=== PATIENT | male | born 1945 | race Caucasian/White ===

== ENCOUNTER → 2018-05-17 | Day surgery (SDC) | payer MEDICARE, OTHER ==
[~2018-05-17] MED LIST: METHYLPREDNISOLONE ACETATE INJ 40 MG/1 ML ML ONE
--- NOTE | 2018-05-17 14:39 | RADIOLOGY REPORT (SQ) ---
EXAM DESCRIPTION: INJECT/ASPIR HIP/SHLDR/KNEE; FLUORO/NEEDLE PLACEMENT COMPLETED DATE/TIME: 05/17/2018 2:24 pm REASON FOR STUDY: M16.12 UNILATERAL PRIMARY OSTEOARTHRITIS, LEFT HIP M16.12 UNILATERAL PRIMARY OSTE OARTHRITIS, LEFT HIP COMPARISON: None. FLUOROSCOPY TIME: 0.16 minutes. 1 images saved to PACS. LIMITATIONS: None. PROCEDURE: SITE OF INJECTION: Left hip. LOCALIZING CONTRAST TYPE AND DOSE: 1 mL Isovue 300. MEDICATION TYPE AND DOSE: 80 mg Depo-Medrol and 5 mL Sensorcaine. Using local anesthesia and sterile technique with fluoroscopic guidance, the needle was advanced into the joint. Iodinated contrast was injected to verify intraarticular placement. This was followed by therapeutic injection of the indicated medications. The needle was removed. There were no immediat e complications. Preprocedure pain level: 4/5. Postprocedure pain level: 1/5. IMPRESSION: THERAPEUTIC INJECTION OF THE LEFT HIP JOINT ABOVE. COMMENT: Patient medication list reviewed: Yes- Quality ID# [id number]:Eligible professional attests to doc umenting in the medical record they obtained, updated, or reviewed the patient's current medications. . Quality ID 145: Final reports for procedures using fluoroscopy that document radiation exposure cynthia tasha, or exposure time and number of fluorographic images (if radiation exposure indices are not avail able) TECHNICAL DOCUMENTATION: JOB ID: [id number] [employer]- All Rights Reserved Reading location - IP/workstation name: [email or web address]
--- NOTE | 2018-05-17 14:39 | RADIOLOGY REPORT (SQ) ---
EXAM DESCRIPTION: INJECT/ASPIR HIP/SHLDR/KNEE; FLUORO/NEEDLE PLACEMENT COMPLETED DATE/TIME: 05/17/2018 2:24 pm REASON FOR STUDY: M16.12 UNILATERAL PRIMARY OSTEOARTHRITIS, LEFT HIP M16.12 UNILATERAL PRIMARY OSTE OARTHRITIS, LEFT HIP COMPARISON: None. FLUOROSCOPY TIME: 0.16 minutes. 1 images saved to PACS. LIMITATIONS: None. PROCEDURE: SITE OF INJECTION: Left hip. LOCALIZING CONTRAST TYPE AND DOSE: 1 mL Isovue 300. MEDICATION TYPE AND DOSE: 80 mg Depo-Medrol and 5 mL Sensorcaine. Using local anesthesia and sterile technique with fluoroscopic guidance, the needle was advanced into the joint. Iodinated contrast was injected to verify intraarticular placement. This was followed by therapeutic injection of the indicated medications. The needle was removed. There were no immediat e complications. Preprocedure pain level: 4/5. Postprocedure pain level: 1/5. IMPRESSION: THERAPEUTIC INJECTION OF THE LEFT HIP JOINT ABOVE. COMMENT: Patient medication list reviewed: Yes- Quality ID# [id number]:Eligible professional attests to doc umenting in the medical record they obtained, updated, or reviewed the patient's current medications. . Quality ID 145: Final reports for procedures using fluoroscopy that document radiation exposure cynthia tasha, or exposure time and number of fluorographic images (if radiation exposure indices are not avail able) TECHNICAL DOCUMENTATION: JOB ID: [id number] [employer]- All Rights Reserved Reading location - IP/workstation name: [email or web address]
== END ==
LOC: RAD 13:51
PROVIDERS: ATTEND Internal Medicine
DX: M16.12 Unilateral primary osteoarthritis, left hip (principal)
CPT/HCPCS: 20610; 77002; J1020

== ENCOUNTER 2019-10-08 06:07 | Emergency (ER) | payer MEDICARE, OTHER ==
[2019-10-08] MEDS ORDERED: TRANEXAMIC ACID INJ/PF 1,000 MG/10 ML SDV IV ONE ×2 (06:51→07:39)
--- NOTE | 2019-10-08 06:59 | ER Document Report ---
ED Oral Problem - General Chief Complaint: Dental Injury Stated Complaint: BLEEDING GUMS Time Seen by Provider: 10/08/19 06:44 Primary Care Provider: DARLING TRIPATHI MD [Primary Care Provider] - Follow up as needed Notes: Patient is a 73-year-old male that comes emergency department for chief complaint of bleeding gums. He states he had a tooth extraction on 08/06/[address] Juliana Wong at [facility]. He states absorbable sutures were placed but these came out over the night. He states that this is been intermittently bleeding all night. He states he spit out some blood but he has not vomited out any blood, he states he does not feel like he bled significantly down to the throat. Patient states that at one point he formed a clot but then when he opened his mouth the clot came out. He states currently it is bleeding very minimally but he is hoping we can place something to help coagulate the area. He is on Eliquis. He denies injury to the area, pain, or any other complaints. He states he is to follow-up with the Dentist tomorrow. TRAVEL OUTSIDE OF THE [place] IN LAST 30 DAYS: No - Related Data Allergies/Adverse Reactions: No Known Drug Allergies Allergy (Verified 12/15/13 08:14) Home Medications: eliquis. metoprolol. cardiazem. low dose asa. crestor. synthroid. gabapentin Past Medical History - General Information source: Patient - Social History Smoking Status: Never Smoker Frequency of alcohol use: None Drug Abuse: None Lives with: Family Family History: Reviewed & Not Pertinent Patient has suicidal ideation: No Patient has homicidal ideation: No - Past Medical History Cardiac Medical History: Reports: Hx Atrial Fibrillation, Hx Coronary Artery Disease - HIGH CHOLESTEROL, Hx Heart Attack - JANUARY 2012 , Hx Hypertension Pulmonary Medical History: Reports: Hx Bronchitis Denies: Hx Asthma, Hx COPD, Hx Pneumonia Neurological Medical History: Denies: Hx Cerebrovascular Accident, Hx Seizures Musculoskeletal Medical History: Denies Hx Arthritis Past Surgical History: Reports: Hx Cholecystectomy, Hx Open Heart Surgery - JANUARY 2012, TRIPLE BYPASS. Denies: Hx Pacemaker - Immunizations Hx Diphtheria, Pertussis, Tetanus Vaccination: No - UNKNOWN Hx Pneumococcal Vaccination: 10/18/07 Review of Systems - Review of Systems Constitutional: No symptoms reported EENT: See HPI Cardiovascular: No symptoms reported Respiratory: No symptoms reported Gastrointestinal: No symptoms reported Genitourinary: No symptoms reported Male Genitourinary: No symptoms reported Musculoskeletal: No symptoms reported Skin: No symptoms reported Hematologic/Lymphatic: No symptoms reported Neurological/Psychological: No symptoms reported Physical Exam - Vital signs Vitals: Temp Pulse Resp BP Pulse Ox 97.1 F 67 16 179/106 H 98 10/08/19 06:13 10/08/19 06:13 10/08/19 06:13 10/08/19 06:13 10/08/19 06:13 - Notes Notes: GENERAL: Alert, interacts well. No acute distress. HEAD: Normocephalic, atraumatic. EYES: Pupils equal, round, and reactive to light. Extraocular movements intact. ENT: Oral mucosa moist, tongue midline. There is small amount of dried blood on the tongue on the left side, there is what appears to be an extracted tooth of #13 or #14, there is very slow oozing from the gumline in this location. There is no heavy bleeding, no blood in the posterior pharynx, no concerning findings otherwise. Oropharynx unremarkable. Airway patent. Nares patent, no nasal septa l hematoma. NECK: Full range of motion. Supple. Trachea midline. LUNGS: Clear to auscultation bilaterally, no wheezes, rales, or rhonchi. No respiratory distress. HEART: Regular rate and rhythm. No murmur ABDOMEN: Soft, non-tender. Non-distended. EXTREMITIES: Moves all 4 extremities spontaneously. No edema, normal radial and dorsalis pedis pulses bilaterally. No cyanosis. BACK: no cervical, thoracic, lumbar midline tenderness. No saddle anesthesia, normal distal neurovascular exam. NEUROLOGICAL: Alert and oriented x3. Normal speech. Cranial nerves II through XII grossly intact. PSYCH: Normal affect, normal mood. SKIN: Warm, dry, normal turgor. No rashes or lesions noted. Course - Re-evaluation Re-evalutation: Patient has losing from the area in question from the recent tooth extraction and removed suture. There is no heavy bleeding. Patient denies that he was bleeding heavily, denies that he was coughing out or spitting up blood. He denies dizziness. He is somewhat hypertensive but he is not tachycardic. He states he just needs to go home and sleep. He is requesting we make the area stop bleeding, he has follow-up with his dentist tomorrow. TXA was used to spray some aerosolized medication on the area and then the medication was applied to gauze and placed over the area. On evaluation bleeding is stopped. After we clean the area we accidentally remove the clot over the area and on reevaluation this was noted to be very slowly oozing. Patient cannot feel the bleeding but can taste a little bit of blood. He is not choking on the blood, vomiting blood, and has no blood in the posterior pharynx. He requests to leave because this is so minimal. He states he will be careful with eating, he states he will see his dentist tomorrow, he states he will come back if he starts having bleeding. Area was sprayed once more and he was discharged with return precautions. - Vital Signs Vital signs: Temp Pulse Resp BP Pulse Ox 97.1 F 67 16 179/106 H 98 10/08/19 06:13 10/08/19 06:13 10/08/19 06:13 10/08/19 06:13 10/08/19 06:13 Discharge - Discharge Clinical Impression: Gingival bleeding Condition: Stable Disposition: HOME, SELF-CARE Additional Instructions: I recommend today drinking with a straw, eating very carefully without extremes of temperature in your food, and applying pressure to the area with provided gauze intermittently if needed. Please follow-up with your dentist tomorrow. Return if you worsen in any way including heavy bleeding, coughing up or vomiting blood, dizziness, or any other concerning or worsening symptoms. Referrals: DARLING TRIPATHI MD [Primary Care Provider] - Follow up as needed
[2019-10-08 07:52] VITALS: BP 154/97
== END 2019-10-08 07:54 | disposition home or self-care (01) ==
LOC: ER 06:07
DX: K06.9 Disorder of gingiva and edentulous alveolar ridge, unspecified (principal); K08.109 Complete loss of teeth, unspecified cause, unspecified class; I48.91 Unspecified atrial fibrillation; I25.10 Atherosclerotic heart disease of native coronary artery without angina pectoris; E78.00 Pure hypercholesterolemia, unspecified; I10 Essential (primary) hypertension; Z79.01 Long term (current) use of anticoagulants; Z79.899 Other long term (current) drug therapy; Z79.82 Long term (current) use of aspirin
CPT/HCPCS: 96376; 99283; 96374; J3490

== ENCOUNTER → 2019-12-05 | Outpatient (CLI) | payer MEDICARE, OTHER ==
--- NOTE | 2019-12-05 15:21 | RADIOLOGY REPORT (SQ) ---
EXAM DESCRIPTION: MRI RT LOWER EXTREMITY WITHOUT COMPLETED DATE/TIME: 12/05/2019 11:36 am REASON FOR STUDY: M79.671 PAIN IN RIGHT FOOT M79.671 PAIN IN RIGHT FOOT. Pain in the right forefoo t for 3 weeks. Bruising, redness, swelling. Possible overuse injury. No reported injury. COMPARISON: None. TECHNIQUE: Multisequence, multiplanar MRI of the right 4th without contrast. LIMITATIONS: None. FINDINGS: There is diffuse subcutaneous edema involving the forefoot. No focal drainable abscess. Mild skin thickening on the dorsal aspect of the forefoot. No abnormal bone marrow signal. Diffuse muscle edema is also noted. Ligaments and tendons are intact with normal alignment and appearance. No joint effusions. No significant periarticular erosions. IMPRESSION: Diffuse subcutaneous edema and muscular edema involving the forefoot. No focal drainabl e abscess. No evidence of osteomyelitis. TECHNICAL DOCUMENTATION: JOB ID: [id number] 2010 [employer]- All Rights Reserved Reading location - IP/workstation name: [email or web address]
== END ==
LOC: RAD 11:54
PROVIDERS: ATTEND Orthopaedic Surgery
DX: M79.671 Pain in right foot (principal); R60.0 Localized edema